=== PATIENT | male | born 1935 | race Caucasian/White ===

== ENCOUNTER 2016-05-03 12:37 | Outpatient (CLI) | payer OTHER ==
--- NOTE | 2016-05-03 13:32 | DIAGNOSTIC IMAGING REPORT ---
PROCEDURE: XR ELBOW 3 OR 4 VIEWS - LEFT INDICATION: MASS OF ELBOW REGION TECHNIQUE: Four views. COMPARISON: None. FINDINGS: 8 x 3.7 x 3.9 cm low density ovoid sharply marginated soft tissue mass along the anterolateral aspect of the elbow joint consistent with a lipoma. Spurring of the coronoid process. Soft tissue calcification at the triceps tendon insertion. No fracture, suspicious osseous lesion or dislocation. IMPRESSION: 1. 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 Left elbow joint degenerative changes
== END 2016-05-03 23:00 ==
LOC: XR SRH 12:37
DX: M19.022 Primary osteoarthritis, left elbow (principal); D17.1 Benign lipomatous neoplasm of skin and subcutaneous tissue of trunk